=== PATIENT | female | born 1995 | race Caucasian/White ===

== ENCOUNTER 2020-04-12 20:42 | Emergency (ER) | payer MEDICAID ==
[~2020-04-12] VITALS: Ht 157.5 cm; Wt 91.0 kg
[2020-04-13] MEDS ORDERED: KETOROLAC 30MG/ML VIAL IV STA (01:42)
[2020-04-13] MEDS ORDERED: SODIUM CHLORIDE 0.9% 1,000 ML IV ONE (01:42)
[2020-04-13] MEDS ORDERED: ONDANSETRON HCL 4MG/2ML INJ IV STA (01:42)
[2020-04-13 02:15] LABS: BASOPHILS % 0.7 % (0.0-2.0); EOSINOPHILS % 0.6 % (0.0-5.0); HEMATOCRIT. 41.6 % (36.0-48.0); MEAN CORPUSCULAR HEMOGLOBIN 31.9 pg (28.0-32.0); MEAN CORPUSCULAR VOLUME 94.7 fL (81.0-99.0); MEAN PLATELET VOLUME 8.4 fl (7.4-10.4); MONOCYTES % 4.6 % (2.0-8.0); NEUTROPHILS % 72.1 % (40.0-76.0); PLATELET 292 x1000/uL (130-400); RED CELL DISTRIBUTION WIDTH 13.2 % (11.6-14.6)
[2020-04-13 02:17] LABS: CHLORIDE 107 mEq/L (98-107)
[2020-04-13 02:20] LABS: PROTHROMBIN TIME 10.7 sec (9.6-11.0)
[2020-04-13 03:06] LABS: HCG SCREEN NEGATIVE
[2020-04-13 05:13] VITALS: BP 124/77
== END 2020-04-13 05:14 | disposition home or self-care (01) ==
LOC: ER 20:42
DX: K80.20 Calculus of gallbladder without cholecystitis without obstruction (principal); K76.0 Fatty (change of) liver, not elsewhere classified; Z68.36 Body mass index [BMI] 36.0-36.9, adult; Z71.3 Dietary counseling and surveillance
CPT/HCPCS: 36415; 76705; 80053; 83690; 84703; 85025; 85610; 93005; 96361; 96374; 96375; 99285; J1885; J2405; J7030

== ENCOUNTER 2023-07-04 16:52 | Inpatient (IN) | payer SELFPAY ==
[~2023-07-04] VITALS: Ht 162.6 cm; Wt 90.7 kg
[2023-07-04 16:53] VITALS: O2SAT 98
[2023-07-04] MEDS ORDERED: ACETAMINOPHEN 325MG TABLET PO ONE (17:15)
[2023-07-04] MEDS ORDERED: ONDANSETRON 4MG ODT PO ONE (17:15)
[2023-07-04] MEDS ORDERED: FAMOTIDINE 20MG TABLET PO ONE (17:15)
[2023-07-04 17:22] LABS: BASOPHILS % 0.4 % (0.0-2.0); EOSINOPHILS % 0.3 % (0.0-5.0); HEMATOCRIT. 44.3 % (36.0-48.0); HEMOGLOBIN. 15.2 g/dL (12.0-16.0); LYMPHOCYTES % 14.3 % (20.0-50.0); MEAN CORPUSCULAR HEMOGLOBIN 32.2 pg (28.0-32.0); MEAN CORPUSCULAR HGB CONC 34.3 g/dL (31.0-37.0); MEAN PLATELET VOLUME 8.2 fl (7.4-10.4); MONOCYTES % 4.5 % (2.0-8.0); NEUTROPHILS % 80.5 % (40.0-76.0); PLATELET 355 x1000/uL (130-400); RED BLOOD CELL COUNT 4.71 mill/uL (4.2-5.4); RED CELL DISTRIBUTION WIDTH 13.4 % (11.6-14.6); WHITE BLOOD COUNT 11.2 x1000/uL (4.5-11.0)
[2023-07-04 17:27] LABS: CLARITY URINE CLOUDY (CLEAR); COLOR URINE DARK YELLOW (YELLOW); GLUCOSE URINE NEGATIVE (NEGATIVE); KETONES URINE NEGATIVE (NEGATIVE); LEUKOCYTE ESTERASE URINE NEGATIVE (NEGATIVE); NITRITE URINE NEGATIVE (NEGATIVE); OCCULT BLOOD URINE NEGATIVE (NEGATIVE); PH URINE 7.5 (4.5-8.0); PROTEIN URINE TRACE (NEGATIVE)
[2023-07-04] MEDS ORDERED: OXYCODONE HCL/ACETAMINOPHEN 5/325MG TABLET PO ONE (17:45)
[2023-07-04 17:48] LABS: ALANINE AMINOTRANSFERASE 784 IU/L (10-49); ALBUMIN 4.5 g/dL (3.2-4.8); ASPARTATE AMINOTRANSFERASE 1314 IU/L (<34); BILIRUBIN TOTAL 1.7 mg/dL (0.1-1.0); CALCIUM 9.4 mg/dL (8.7-10.4); CARBON DIOXIDE 24 mEq/L (21-32); CHLORIDE 104 mEq/L (98-107); CREATININE 0.9 mg/dL (0.6-1.0); GLUCOSE 120 mg/dL (70-105); POTASSIUM 4.1 mEq/L (3.5-5.1); PROTEIN TOTAL 7.5 g/dL (6.0-8.3); SODIUM 138 mEq/L (136-145); UREA NITROGEN BLOOD 9 mg/dL (9-23)
[2023-07-04 17:52] LABS: AMORPHOUS SEDIMENT URINE 1+ /lpf; BACTERIA URINE 1+; SQUAMOUS EPITHELIAL CELL URINE 1+ /lpf (RARE/1+); WBC URINE 0-2 /hpf (0-2)
[2023-07-04 18:28] LABS: HCG SCREEN NEGATIVE
[2023-07-04] MEDS ORDERED: FAMOTIDINE 20MG TABLET PO NR (19:30)
[2023-07-04] MEDS ORDERED: ONDANSETRON 4MG ODT PO NR (19:30)
[2023-07-04] MEDS ORDERED: MORPHINE SULFATE 4 MG/ML CPJ (NOT FOR IM USE) IV ONE (21:45)
[2023-07-05] VITALS (7 sets, daily range): BP systolic 86–103; BP diastolic 37–60; PULSE 58–64; RESP 17–58; TEMP 96.1–97.9
[2023-07-05] MEDS ORDERED: MAGNESIUM/ALUMINUM HYDROXIDE/SIMETHICONE 30ML UDC PO PRN (01:45)
[2023-07-05] MEDS ORDERED: CLONIDINE 0.1MG TABLET PO PRN (01:45)
[2023-07-05] MEDS ORDERED: ACETAMINOPHEN 325MG TABLET PO PRN ×2 (01:45)
[2023-07-05] MEDS ORDERED: ONDANSETRON HCL 4MG/2ML INJ IV PRN (01:45)
[2023-07-05] MEDS ORDERED: SODIUM CHLORIDE 0.45% 1,000 ML IV SCH (01:45)
[2023-07-05] MEDS ORDERED: IPRATROPIUM/ALBUTEROL 0.5-3(2.5)MG/3ML NEB HHN PRN (01:45)
[2023-07-05] MEDS ORDERED: GUAIFENESIN 200MG/10ML SUGAR FREE UDC PO PRN (01:45)
[2023-07-05] MEDS ORDERED: DOCUSATE SODIUM 100MG CAPSULE PO PRN (01:45)
[2023-07-05] MEDS ORDERED: KETOROLAC 15MG/ML VIAL IV PRN (02:15)
[2023-07-05 04:25] LABS: ALANINE AMINOTRANSFERASE 969 IU/L (10-49); ASPARTATE AMINOTRANSFERASE 770 IU/L (<34); BASOPHILS % 0.8 % (0.0-2.0); BILIRUBIN DIRECT 0.4 mg/dL (<=3.0); BILIRUBIN TOTAL 1.2 mg/dL (0.1-1.0); CALCIUM 8.9 mg/dL (8.7-10.4); CARBON DIOXIDE 29 mEq/L (21-32); CHLORIDE 106 mEq/L (98-107); CHOLESTEROL 174 mg/dL (<200); CREATINE KINASE 63 IU/L (34-145); CREATININE 0.8 mg/dL (0.6-1.0); EOSINOPHILS % 2.6 % (0.0-5.0); GAMMA GLUTAMYL TRANSPEPTIDASE 333 IU/L (<38); GLUCOSE 86 mg/dL (70-105); HDL CHOLESTEROL 60 mg/dL (>65); HEMOGLOBIN. 13.6 g/dL (12.0-16.0); LDL CHOLESTEROL 88 mg/dL (5-100); LYMPHOCYTES % 36.1 % (20.0-50.0); MEAN CORPUSCULAR HEMOGLOBIN 31.9 pg (28.0-32.0); MEAN CORPUSCULAR HGB CONC 33.2 g/dL (31.0-37.0); MEAN CORPUSCULAR VOLUME 95.9 fL (81.0-99.0); MEAN PLATELET VOLUME 8.5 fl (7.4-10.4); MONOCYTES % 5.3 % (2.0-8.0); NEUTROPHILS % 55.2 % (40.0-76.0); PLATELET 317 x1000/uL (130-400); POTASSIUM 3.7 mEq/L (3.5-5.1); PROTEIN TOTAL 7.2 g/dL (6.0-8.3); RED BLOOD CELL COUNT 4.28 mill/uL (4.2-5.4); RED CELL DISTRIBUTION WIDTH 13.3 % (11.6-14.6); SODIUM 141 mEq/L (136-145); T4 FREE 0.98 ng/dL (0.89-1.76); THYROID STIMULATING HORMONE 1.42 uIU/mL (0.55-4.78); TRIGLYCERIDE 83 mg/dL (0-150); UREA NITROGEN BLOOD 9 mg/dL (9-23); WHITE BLOOD COUNT 6.6 x1000/uL (4.5-11.0)
[2023-07-05 04:30] LABS: TROPONIN I HIGH SENSITIVITY < 4 ng/L (3.0-34)
[2023-07-05] MEDS: PIPERACILLIN/TAZOBACTAM 3.375 G in DEXTROSE 5% WATER 50 ML IV SCH ×3 (04:30→21:11)
[2023-07-05 04:58] LABS: HEPATITIS A AB IGM NEGATIVE (Negative); HEPATITIS B CORE AB IGM NEGATIVE (Negative); HEPATITIS B SURFACE ANTIGEN NEGATIVE (Negative); HEPATITIS C AB NON REACTIVE (Neg) (Negative)
[2023-07-05] MEDS: DEXT 5%/0.9% NACL 1,000 ML IV SCH ×2 (06:00→15:44)
[2023-07-05] MEDS: PANTOPRAZOLE SODIUM 40 MG/VIAL IV SCH (10:08)
[2023-07-05 18:22] LABS: CREATINE KINASE 57 IU/L (34-145); TROPONIN I HIGH SENSITIVITY 5 ng/L (3.0-34)
[2023-07-06] VITALS: BP 78/39; PULSE 47; RESP 17; TEMP 97.2
[2023-07-06] MEDS: DEXT 5%/0.9% NACL 1,000 ML IV SCH ×2 (01:41→11:03)
[2023-07-06 04:00] VITALS: BP 75/40; PULSE 46; RESP 17; TEMP 97.1
[2023-07-06] MEDS: PIPERACILLIN/TAZOBACTAM 3.375 G in DEXTROSE 5% WATER 50 ML IV SCH ×2 (05:40→14:29)
[2023-07-06 07:47] LABS: *AMPHETAMINES SCREEN URINE NEGATIVE (NEGATIVE); *BARBITURATES SCREEN URINE NEGATIVE (NEGATIVE); *BENZODIAZEPINES SCREEN URINE NEGATIVE (NEGATIVE); *COCAINE SCREEN URINE NEGATIVE (NEGATIVE); CANNABINOID URINE SCREEN NEGATIVE (NEGATIVE); ECSTASY MDMA SCREEN URINE NEGATIVE (NEGATIVE); METHADONE URINE SCREEN Neg (NEGATIVE); OPIATES URINE SCREEN NEGATIVE (NEGATIVE); PHENCYCLIDINE URINE SCREEN NEGATIVE (NEGATIVE)
[2023-07-06 08:00] VITALS: BP 90/42; PULSE 50; RESP 19; TEMP 96.4
[2023-07-06] MEDS: PANTOPRAZOLE SODIUM 40 MG/VIAL IV SCH (08:39)
[2023-07-06 09:42] LABS: BASOPHILS % 0.5 % (0.0-2.0); EOSINOPHILS % 3.4 % (0.0-5.0); HEMATOCRIT. 40.8 % (36.0-48.0); HEMOGLOBIN. 13.1 g/dL (12.0-16.0); LYMPHOCYTES % 29.4 % (20.0-50.0); MEAN CORPUSCULAR HEMOGLOBIN 31.4 pg (28.0-32.0); MEAN CORPUSCULAR HGB CONC 32.1 g/dL (31.0-37.0); MEAN CORPUSCULAR VOLUME 97.9 fL (81.0-99.0); MEAN PLATELET VOLUME 8.1 fl (7.4-10.4); MONOCYTES % 5.7 % (2.0-8.0); PLATELET 301 x1000/uL (130-400); RED BLOOD CELL COUNT 4.17 mill/uL (4.2-5.4); RED CELL DISTRIBUTION WIDTH 13.4 % (11.6-14.6)
[2023-07-06 10:05] LABS: ALANINE AMINOTRANSFERASE 471 IU/L (10-49); ALBUMIN 3.8 g/dL (3.2-4.8); ASPARTATE AMINOTRANSFERASE 111 IU/L (<34); BILIRUBIN TOTAL 0.8 mg/dL (0.1-1.0); CALCIUM 9.1 mg/dL (8.7-10.4); CARBON DIOXIDE 31 mEq/L (21-32); CHLORIDE 107 mEq/L (98-107); CREATININE 0.9 mg/dL (0.6-1.0); GLUCOSE 76 mg/dL (70-105); PHOSPHORUS 4.5 mg/dL (2.5-4.9); POTASSIUM 3.7 mEq/L (3.5-5.1); PROTEIN TOTAL 6.8 g/dL (6.0-8.3); SODIUM 144 mEq/L (136-145); UREA NITROGEN BLOOD 8 mg/dL (9-23)
[2023-07-06 12:00] VITALS: BP 87/41; PULSE 51; RESP 17; TEMP 97.5
[2023-07-07] MEDS ORDERED: FAMOTIDINE 20MG/2ML VIAL IV SCH (09:00)
== END 2023-07-06 15:10 | disposition left against medical advice (07) | DRG 720 ==
LOC: ER 16:52 → MICUSO 22:57 → EDBEDREQ 23:15 → EDBEDREQTM 23:15 → EDBEDREQ 23:16 → 6EST 07-05 00:29
PROVIDERS: ADMIT Internal Medicine; ATTEND Internal Medicine
DX: A41.9 Sepsis, unspecified organism (principal); K76.0 Fatty (change of) liver, not elsewhere classified; R16.0 Hepatomegaly, not elsewhere classified; E11.65 Type 2 diabetes mellitus with hyperglycemia; K80.20 Calculus of gallbladder without cholecystitis without obstruction; F17.210 Nicotine dependence, cigarettes, uncomplicated; E80.6 Other disorders of bilirubin metabolism; K76.89 Other specified diseases of liver
CPT/HCPCS: 36415; 74176; 76705; 80053; 80061; 80305; 80320; 81003; 82248; 82550; 82977; 83036; 83605; 83735; 84100; 84145; 84439; 84443; 84484; 84703; 85025; 86705; 86709; 87340; 99285; C9113; J1885; J2405; J2543; J7042; J7060; Q0162